=== PATIENT | female | born 1995 | race African-American/Black ===

== ENCOUNTER 2019-06-06 07:47 | Inpatient (IN) ==
[2019-06-06] MEDS ORDERED: CITRIC ACID/SODIUM CITRATE 30 ML UDCUP PO ONE (08:15)
[2019-06-06] MEDS ORDERED: ceFAZolin 2,000 MG in PREMIX 1 EACH IV ONE (08:15)
[2019-06-06] MEDS ORDERED: FAMOTIDINE 20 MG/2 ML VIAL IV ONE (08:15)
[2019-06-06] MEDS ORDERED: LACTATED RINGERS 1,000 ML IV SCH (08:30)
[2019-06-06 08:31] LABS: Basophils % 0.2 % (0.0-0.8); Eosinophils # 0.1 10*3/uL (0.0-0.87); Eosinophils % 0.9 % (0.00-10.9); Hematocrit 34.1 VOL% (35.7-47.0); Hemoglobin 11.2 GM/DL (12.0-16.0); Immature Granulocytes % 0.2 %; Immature Granulocytes Absolute 0.01 #; Lymphocytes # 1.9 10*3/uL (1.4-4.0); Lymphocytes % 36.6 % (21.3-54.2); Mean Corpuscular HGB Conc 32.8 GM/DL (32-36); Mean Corpuscular Volume 94.5 FL (87-102); Mean Platelet Volume 9.3 FL (9.6-12.0); Monocytes % 6.8 % (1.7-12.7); Neutrophils % 55.3 % (38.7-73.9); Platelet Count 187 T/CUMM (130-400); Red Blood Count 3.61 MC/CUMM (3.8-5.5); Red Cell Distribution Width 13.2 % (9.3-17.3); White Blood Count 5.3 T/CUMM (4-12)
[2019-06-06 08:52] LABS: Albumin 3.5 G/DL (3.4-5.0); Bilirubin,Total 0.4 MG/DL (0.2-1.0); Calcium 9.3 MG/DL (8.5-10.1); Osmolality,Calculated 270.7 MOS/KG (273-304); Total Protein 8.3 G/DL (6.4-8.3)
[2019-06-06] MEDS ORDERED: OXYTOCIN 10 UNIT/ML VIAL IV ONE (10:05)
[2019-06-06] MEDS ORDERED: OXYTOCIN/LR 20 UNIT/1,000 ML BAG IV ONE (10:05)
[2019-06-06] MEDS ORDERED: BUPIVACAINE SPINAL 0.75% 2 ML AMP SPINAL ONE (10:34)
[2019-06-06] MEDS ORDERED: ROPIVACAINE 0.5% 30 ML VIAL ONE (10:34)
[2019-06-06] MEDS ORDERED: MORPHINE 10 MG/10 ML VIAL ONE (10:34)
[2019-06-06] MEDS ORDERED: PHENYLEPHRINE 1 MG/10 ML SYRINGE IV ONE ×2 (10:35→13:10)
[2019-06-06] MEDS ORDERED: ONDANSETRON 4 MG/2 ML VIAL ONE (10:35)
[2019-06-06] MEDS ORDERED: DEXAMETHASONE 4 MG/1 ML VIAL ONE (10:35)
[2019-06-06 12:15] LABS: Amorphous Crystals,Urine Occasional /HPF (Few); Apearance,Urine Slightly Hazy (Clear); Bilirubin,Urine Negative (Negative); Blood, Urine Negative (Negative); Glucose,Urine (UA) Negative (Negative); Hyaline Casts,Urine 1 /LPF (0-3); Ketones,Urine 80 mg/dL (Negative); Mucus,Urine Occasional /LPF (Occasional); Nitrite,Urine Negative (Negative); Protein,Urine Negative; RBC,Urine <1 /HPF (0-4); Urine Color Yellow (Yellow); Urine Specific Gravity 1.015 (1.001-1.035); Urine Urobilinogen < 2.0 EU/DL (0.2-1.0)
[2019-06-06] MEDS ORDERED: ePHEDrine 50 MG/ML AMP ONE (13:10)
[2019-06-06] MEDS ORDERED: ACETAMINOPHEN 325 MG TABLET PO PRN (16:05)
[2019-06-06] MEDS ORDERED: ONDANSETRON 4 MG/2 ML VIAL IV PRN (16:05)
[2019-06-06] MEDS ORDERED: SIMETHICONE CHEW 80 MG TABLET PO PRN (16:05)
[2019-06-06] MEDS ORDERED: RHO(D) IMMUNE GLOBULIN 300 MCG SYRINGE IM ONE (16:05)
[2019-06-06] MEDS: KETOROLAC 30 MG/1 ML VIAL IV SCH ×2 (17:11→22:18)
[2019-06-06] MEDS: ceFAZolin 1,000 MG in SYRINGE 1 EACH IV SCH (18:10)
[2019-06-06] MEDS: DOCUSATE SODIUM 100 MG CAPSULE PO SCH (20:26)
[2019-06-06 20:52] LABS: Basophils % 0.1 % (0.0-0.8); Hematocrit 29.1 VOL% (35.7-47.0); Hemoglobin 9.7 GM/DL (12.0-16.0); Immature Granulocytes % 0.4 %; Immature Granulocytes Absolute 0.04 #; Lymphocytes # 0.8 10*3/uL (1.4-4.0); Lymphocytes % 7.7 % (21.3-54.2); Mean Corpuscular HGB Conc 33.3 GM/DL (32-36); Mean Corpuscular Volume 94.8 FL (87-102); Mean Platelet Volume 9.2 FL (9.6-12.0); Monocytes % 2.8 % (1.7-12.7); Platelet Count 175 T/CUMM (130-400); Red Blood Count 3.07 MC/CUMM (3.8-5.5); Red Cell Distribution Width 13.1 % (9.3-17.3); White Blood Count 10.9 T/CUMM (4-12)
[2019-06-07] MEDS: ceFAZolin 1,000 MG in SYRINGE 1 EACH IV SCH (03:04)
[2019-06-07] MEDS: KETOROLAC 30 MG/1 ML VIAL IV SCH ×2 (05:50→13:00)
[2019-06-07 06:29] LABS: Basophils % 0.1 % (0.0-0.8); Eosinophils % 0.1 % (0.00-10.9); Hematocrit 27.8 VOL% (35.7-47.0); Hemoglobin 9.1 GM/DL (12.0-16.0); Immature Granulocytes % 0.4 %; Immature Granulocytes Absolute 0.04 #; Lymphocytes # 1.4 10*3/uL (1.4-4.0); Lymphocytes % 14.7 % (21.3-54.2); Mean Corpuscular HGB Conc 32.7 GM/DL (32-36); Mean Corpuscular Volume 95.2 FL (87-102); Mean Platelet Volume 9.5 FL (9.6-12.0); Monocytes % 7.5 % (1.7-12.7); Neutrophils % 77.2 % (38.7-73.9); Platelet Count 184 T/CUMM (130-400); Red Blood Count 2.92 MC/CUMM (3.8-5.5); Red Cell Distribution Width 13.1 % (9.3-17.3); White Blood Count 9.4 T/CUMM (4-12)
[2019-06-07] MEDS: MAGNESIUM HYDROXIDE SUSP 30 ML UDCUP PO PRN (08:29)
[2019-06-07] MEDS: MULTIVITAMIN (PRENATAL) TABLET PO SCH (08:29)
[2019-06-07] MEDS: DOCUSATE SODIUM 100 MG CAPSULE PO SCH ×2 (08:29→20:00)
[2019-06-07] MEDS: IBUPROFEN 800 MG TABLET PO SCH (14:25)
[2019-06-08] MEDS: IBUPROFEN 800 MG TABLET PO SCH ×4 (02:12→14:00)
[2019-06-08] MEDS: MAGNESIUM HYDROXIDE SUSP 30 ML UDCUP PO PRN (09:08)
[2019-06-08] MEDS: MULTIVITAMIN (PRENATAL) TABLET PO SCH (09:08)
[2019-06-08] MEDS: DOCUSATE SODIUM 100 MG CAPSULE PO SCH (09:08)
[2019-06-08 11:59] VITALS: BP 107/60
== END 2019-06-08 15:10 | disposition home or self-care (01) | DRG 540 ==
LOC: N.LDOUT 07:47 → N.LD 07:50 → N.OB 15:20
PROVIDERS: ADMIT Obstetrics & Gynecology; ATTEND Obstetrics & Gynecology
PROC: LDCSECT (ICD-10-PCS; 2019-06-06 11:00)